=== PATIENT | female | born 1975 | race Caucasian/White ===

== ENCOUNTER 2016-08-13 11:30 | Inpatient (IN) | payer MEDICAID ==
[~2016-08-13] VITALS: Ht 157.5 cm; Wt 54.4 kg
[2016-08-13 11:35] VITALS: BP 157/94
--- NOTE | 2016-08-13 12:47 | NUR ---
Patient to bed 07.
--- NOTE | 2016-08-13 12:55 | NUR ---
PT C/O RLQ PAIN STARTED SINCE THIS MORNING; DENIES V/D; SKIN IS PINK/WARM/DRY; AAOX4 WITH EVEN AND STEADY GAIT; LUNGS CLEAR BL; HR EVEN AND REGULAR; PT DENIES ANY FEVER, CP, SOB, OR COUGH AT THIS TIME; PATIENT STATES PAIN OF 10/10 AT THIS TIME; VSS; PATIENT POSITIONED FOR COMFORT; HOB ELEVATED; BEDRAILS UP X2; BED DOWN. ER MD MADE AWARE OF PT STATUS.
--- NOTE | 2016-08-13 14:00 | NUR ---
DR RODRIGUES NOTIFIED OF PT'S C/O PAIN, AWAITING ORDERS, WILL CONTINUE TO MONITOR
[2016-08-13] MEDS ORDERED: HYDROmorphone 1 MG/ML AMP IVP ONE ×2 (14:35→16:45)
[2016-08-13] MEDS ORDERED: ONDANSETRON 4 MG/2 ML VIAL IVP ONE ×2 (14:35→16:45)
[2016-08-13] MEDS ORDERED: NACL 0.9% 1,000 ML IV ONE (14:35)
[2016-08-13 15:04] LABS: BASOPHILS # (AUTO) 0.1 K/uL (0.00-0.22); EOSINOPHILS # (AUTO) 0.2 K/uL (0-0.4)
[2016-08-13 15:10] LABS: BASOPHILS % (AUTO) 0.6 % (0.0-2.0); EOSINOPHILS % (AUTO) 1.3 % (0.0-4.0); HEMATOCRIT 45.8 % (36-48); HEMOGLOBIN 15.6 g/dL (12.0-16.0); LYMPHOCYTES % (AUTO) 8.6 % (20.5-51.1); MEAN CORPUSCULAR HEMOGLOBIN 31 pg (27-31); MEAN CORPUSCULAR HGB CONC 34 g/dL (33-37); MEAN CORPUSCULAR VOLUME 91 fL (80-94); MONOCYTES # (AUTO) 0.3 K/uL (0.8-1.0); MONOCYTES % (AUTO) 2.1 % (1.7-9.3); NEUTROPHILS # (AUTO) 10.3 K/uL (1.8-7.7); NEUTROPHILS % (AUTO) 87.4 % (42.2-75.2); PLATELET COUNT (AUTO) 232 K/uL (140-450); RED BLOOD CELL COUNT(AUTO) 5.06 MIL/uL (4.20-5.40); RED CELL DISTRIBUTION WIDTH 12.7 % (11.6-13.7); WHITE BLOOD COUNT (AUTO) 11.9 K/uL (4.8-10.8)
[2016-08-13 15:14] LABS: ANION GAP 14.4 (8-16); CARBON DIOXIDE 26.2 mmol/L (21-32); CREATININE 0.6 mg/dL (0.6-1.3); POTASSIUM 3.6 mmol/L (3.5-5.1)
[2016-08-13 15:21] LABS: ALBUMIN 4.4 g/dL (3.4-5.0); TOTAL BILIRUBIN 0.5 mg/dL (0.0-1.0); TOTAL PROTEIN, SERUM 8.5 g/dL (6.4-8.2)
[2016-08-13 15:45] LABS: APPEARANCE,URINE CLOUDY (CLEAR); BILIRUBIN,URINE NEGATIVE (NEGATIVE); BLOOD, URINE 1+ (NEGATIVE); COLOR,URINE YELLOW (YELLOW); LEUKOCYTE ESTERASE ,URINE NEGATIVE (NEGATIVE); NITRITE, URINE NEGATIVE (NEGATIVE); PROTEIN,URINE NEGATIVE (NEGATIVE); UGLUCOSE NEGATIVE (NEGATIVE); UROBILINOGEN,URINE 0.2 EU/dL (0.2 - 1)
[2016-08-13 15:47] LABS: RBC,URINE 0-5 /HPF (0-5); WBC,URINE 0-3 /HPF (0-5)
[2016-08-13 15:48] LABS: BACTERIA,URINE FEW /HPF (None Seen); SQUAMOUS EPITHELIAL CELL,UR 15-30 /LPF (0-3 (FEW)); URINE AMORPHOUS PHOSPHATES 4+ /HPF (None Seen)
--- NOTE | 2016-08-13 15:55 | NUR ---
PT RESTING COMFORTABLY WITH AND DAUGHTER AT BEDSIDE, "FEELS BETTER" PER PT, ON MONITOR, WILL CONTINUE TO MONITOR
--- NOTE | 2016-08-13 17:28 | NUR ---
Patient going to CT via wheelchair per tech.
--- NOTE | 2016-08-13 17:47 | NUR ---
Patient back from CT via wheelchair per tech.
--- NOTE | 2016-08-13 17:53 | NUR ---
PT PLACE BACK ON MONITOR, BEDRAILS UP X2 C/O NAUSEA, RLQ PAIN 08/21, MD NOTIFIED, WILL CONTINUE TO MONITOR
--- NOTE | 2016-08-13 19:14 | NUR ---
REPORT GIVEN TO JOAN ENGLE FOR CONTINUATION OF CARE
--- NOTE | 2016-08-13 19:50 | NUR ---
Pt report given to LINDSAY FRANCO . Transfer of care at this time.
--- NOTE | 2016-08-13 19:51 | NUR ---
RECEIVED REPORT FROM KADIE FOR TRANSFER OF CARE. Addendum: 08/13/16 at 2038 by LAVINIA JOAN ENGLE
[2016-08-13] MEDS ORDERED: cefOXitin 2,000 MG in DEXTROSE 5% 50 ML IV ONE (20:35)
--- NOTE | 2016-08-13 20:53 | NUR ---
Patient will be admitted to care of DR Jose BECKWITH. Admited to [facility]. Will go to room 109B. Belongings list completed. Report to JOAN NIEVES.
--- NOTE | 2016-08-13 21:00 | NUR ---
Admitted from E.. with chief complaint of RIGHT LOWER QUADRANT ABDOMINAL PAIN. A 40 y/o. Female, Appropriate. ALERT AWAKE ORIENTED X4. HONDURAN SPEAKING ONLY BUT FAMILY AT BEDSIDE WHO CAN UNDERSTAND AND SPEAK ESTONIAN WELL. INITIAL ASSESSMENT DONE. NO S/S OF RESPIRATORY DISTRESS OR SOB NOTED. NO C/O PAIN OR ANY DISCOMFORT AT THIS TIME. PLAN OF CARE REVIEWED TO PT AND FAMILY AT BEDSIDE AND VERBALIZED UNDERSTANDING AND NEED TO BE REINFORCED. oriented to call light, bed, phone,television, bathroom, smoking policy, visiting hours, procedures, ID bracelet on. Belongings list checked. CALL LIGHT WITHIN REACH. WILL CONTINUE TO MONITOR.
[2016-08-13] MEDS ORDERED: LORazepam 2 MG/ML VIAL IVP PRN (22:05)
[2016-08-13] MEDS ORDERED: ACETAMINOPHEN 325 MG TAB PO PRN (22:05)
--- NOTE | 2016-08-13 22:15 | NUR ---
DR. HINOJOSA CAME TO SEE PT AND NEW ORDERS WERE GIVEN (PLS SEE CPOE). NEW ORDERS NOTED AND CARRIED OUT. WILL CONTINUE TO MONITOR.
[2016-08-13] MEDS ORDERED: cefTRIAXone 1,000 MG VIAL ONE (22:22)
[2016-08-14] VITALS: BP 121/74
--- NOTE | 2016-08-14 00:30 | NUR ---
PT IS SLEEPING RIGHT NOW BUT EASILY AROUSABLE. NO S/S OF ANY DISCOMFORT AT THIS TIME. ALL NEEDS ARE ATTENDED. CALL LIGHT WITHIN REACH. WILL CONTINUE TO MONITOR.
--- NOTE | 2016-08-14 05:20 | NUR ---
AM CARE RENDERED. BED LINEN CHANGED. INSTRUCTED PATIENT TO REPOSITION. KEPT CLEAN AND DRY. CALL LIGHT WITHIN REACH. WILL CONTINUE TO MONITOR.
[2016-08-14 06:59] LABS: BASOPHILS # (AUTO) 0.1 K/uL (0.00-0.22); BASOPHILS % (AUTO) 0.8 % (0.0-2.0); EOSINOPHILS # (AUTO) 0.1 K/uL (0-0.4); EOSINOPHILS % (AUTO) 0.8 % (0.0-4.0); LYMPHOCYTES # (AUTO) 2.9 K/uL (2.5-16.5); LYMPHOCYTES % (AUTO) 23.8 % (20.5-51.1); MEAN CORPUSCULAR HEMOGLOBIN 31 pg (27-31); MEAN CORPUSCULAR HGB CONC 34 g/dL (33-37); MEAN CORPUSCULAR VOLUME 91 fL (80-94); MONOCYTES # (AUTO) 0.8 K/uL (0.8-1.0); MONOCYTES % (AUTO) 6.5 % (1.7-9.3); NEUTROPHILS # (AUTO) 8.4 K/uL (1.8-7.7); NEUTROPHILS % (AUTO) 68.1 % (42.2-75.2); PLATELET COUNT (AUTO) 208 K/uL (140-450); RED BLOOD CELL COUNT(AUTO) 4.17 MIL/uL (4.20-5.40); RED CELL DISTRIBUTION WIDTH 12.8 % (11.6-13.7); WHITE BLOOD COUNT (AUTO) 12.3 K/uL (4.8-10.8)
[2016-08-14 07:16] LABS: ANION GAP 13.1 (8-16); CALCIUM 8.2 mg/dL (8.5-10.1); CARBON DIOXIDE 26.2 mmol/L (21-32); CREATININE 0.6 mg/dL (0.6-1.3); POTASSIUM 3.3 mmol/L (3.5-5.1)
[2016-08-14 08:00] VITALS: BP 118/72
--- NOTE | 2016-08-14 08:00 | NUR ---
RECEIVED ON BED AA0X4. NO SOB NOTED. NO C/O PAIN AT THIS TIME. IV TO RT AC PATENT AND INTACT. CHEST CLEAR. ABDOMEN SOFT, BOWEL SOUNDS PRESENT. NO EDEMA NOTED. INSTRUCTED PT TO CALL FOR ASSISTANCE, CALL LIGHT WITHIN REACH, PT VERBALIZED UNDERSTANDING.
--- NOTE | 2016-08-14 08:40 | NUR ---
DR. Osman ARMAS HERE TO SEE PT.
--- NOTE | 2016-08-14 09:38 | NUR ---
PATIENT HAS BEEN SCREENED AND CATEGORIZED LOW NUTRITION RISK. PATIENT WILL BE SEEN WITHIN 7 DAYS OF ADMISSION. 08/20/16 ANNE COATES MBA, RD
[2016-08-14] MEDS ORDERED: POTASSIUM CHLORIDE 10 MEQ TABER PO SCH (11:35)
[2016-08-14] MEDS: metroNIDAZOLE 500 MG/NS PREMIX 100 ML IV SCH ×2 (13:02→21:14)
--- NOTE | 2016-08-14 14:00 | NUR ---
PT SEEN BY NILE MCCAULEY WITH NEW ORDERS.
--- NOTE | 2016-08-14 14:19 | NUR ---
CALVIN DE LA CRUZ CALLED BACK FOR DR. ROMAN AND NOTIFIED WITH THE CONSULT. NO NEW ORDERS.
[2016-08-14 16:00] VITALS: BP 118/80
--- NOTE | 2016-08-14 18:53 | NUR ---
PT RESTING. NO SOB NOTED. NO COMPLAINTS MADE. WILL ENDORSE TO NEXT SHIFT FOR CONTINUITY OF CARE.
--- NOTE | 2016-08-14 19:10 | NUR ---
RECEIVED PT AWAKE, AAOX4, DENIES ANY PAIN, IV LINE INTACT FLUSHES WELL, PLAN OF CARE DISCUSSED, CALL LIGHT WITHIN REACH.
[2016-08-14] MEDS: HYDROcodone/APAP 5/325 MG 1 TAB TAB PO PRN (21:20)
--- NOTE | 2016-08-14 21:20 | NUR ---
MEDICATED PRN FOR RT ABDOMINAL PAIN WITH NORCO, IV ANTIBIOTIC ADMINISTERED, MONITORED CLOSELY.
[2016-08-15] VITALS: BP 121/70
--- NOTE | 2016-08-15 | NUR ---
PT SLEEPING, EASILY AROUSABLE, VITAL SIGNS STABLE, DENIES ANY PAIN, CONTINUE TO MONITOR CLOSELY.
[2016-08-15] MEDS: metroNIDAZOLE 500 MG/NS PREMIX 100 ML IV SCH ×3 (04:18→20:45)
--- NOTE | 2016-08-15 04:25 | NUR ---
PT SLEEPING, EASILY AROUSABLE, DENIES ANY PAIN, DUE FLAGYL IVPB ADMINISTERED, MONITORED CLOSELY.
--- NOTE | 2016-08-15 06:10 | NUR ---
IV HEPLOCK,AMBULATED TO BR WITH STEADY GAIT, DENIES ANY PAIN, MONITORED CLOSELY.
[2016-08-15 07:23] LABS: BASOPHILS # (AUTO) 0.2 K/uL (0.00-0.22); BASOPHILS % (AUTO) 1.2 % (0.0-2.0); EOSINOPHILS # (AUTO) 0.3 K/uL (0-0.4); EOSINOPHILS % (AUTO) 1.8 % (0.0-4.0); HEMATOCRIT 40.7 % (36-48); HEMOGLOBIN 13.7 g/dL (12.0-16.0); LYMPHOCYTES # (AUTO) 1.9 K/uL (2.5-16.5); LYMPHOCYTES % (AUTO) 13.2 % (20.5-51.1); MEAN CORPUSCULAR HEMOGLOBIN 31 pg (27-31); MEAN CORPUSCULAR HGB CONC 34 g/dL (33-37); MEAN CORPUSCULAR VOLUME 91 fL (80-94); MONOCYTES # (AUTO) 0.6 K/uL (0.8-1.0); MONOCYTES % (AUTO) 4.2 % (1.7-9.3); NEUTROPHILS # (AUTO) 11.1 K/uL (1.8-7.7); NEUTROPHILS % (AUTO) 79.6 % (42.2-75.2); PLATELET COUNT (AUTO) 209 K/uL (140-450); RED BLOOD CELL COUNT(AUTO) 4.46 MIL/uL (4.20-5.40); WHITE BLOOD COUNT (AUTO) 14.1 K/uL (4.8-10.8)
--- NOTE | 2016-08-15 07:25 | NUR ---
PT AWAKE, NO SIGNS OF DISTRESS, REPORT GIVEN TO JOAN BRAND FOR CONTINUITY OF CARE.
--- NOTE | 2016-08-15 07:30 | NUR ---
RECEIVED REPORT FROM JOAN STONE. PT IS A/OX4, AMBULATORY, SKIN IS INTACT, RT AC IV, PATENT, INTACT, FLUSHING WELL, NO S/S OF RESPIRATORY DISTRESS OR DISCOMFORT NOTED, SAFETY/FALL PRECAUTIONS ARE IN PLACE, DISCUSSED PLAN OF CARE WITH PT, PT VERBALIZED UNDERSTANDING, CALL LIGHT WITHIN REACH, WILL CONTINUE TO MONITOR.
[2016-08-15 07:33] LABS: ANION GAP 12.7 (8-16); CALCIUM 8.4 mg/dL (8.5-10.1); CARBON DIOXIDE 26.9 mmol/L (21-32); CREATININE 0.6 mg/dL (0.6-1.3); POTASSIUM 3.6 mmol/L (3.5-5.1)
[2016-08-15 08:00] VITALS: BP 123/82
--- NOTE | 2016-08-15 09:30 | NUR ---
PT IS SITTING UP IN BED WATCHING TV, CALL LIGHT IS WITHIN REACH.
--- NOTE | 2016-08-15 11:40 | NUR ---
PT IS RESTING IN BED AT THIS TIME, FAMILY IS AT BEDSIDE.
--- NOTE | 2016-08-15 12:15 | NUR ---
DUE MEDICATIONS GIVEN, PT TOLERATED WELL, FAMILY IS AT BED, CALL LIGHT WITHIN REACH WILL CONTINUE TO MONITOR.
--- NOTE | 2016-08-15 12:37 | NUR ---
SPOKE WITH DR. TANG DOWD REGARDING PT'S TRANSFER TO HIGHER LEVEL OF CARE. MD STATED IT IS NOT URGENT AND PRINTING PRESSMAN AND MILLINERY TEACHER CAN ARRANGE IT TOMORROW.
--- NOTE | 2016-08-15 13:17 | NUR ---
PT SITTING IN BED EATING LUNCH, FAMILY IS AT BEDSIDE, CALL LIGHT WITHIN REACH.
--- NOTE | 2016-08-15 15:20 | NUR ---
PT RESTING IN BED, FAMILY IS AT BEDSIDE, NO S/S OF RESPIRATORY DISTRESS OR DISCOMFORT NOTED, CALL LIGHT WITHIN REACH, WILL CONTINUE TO MONITOR.
[2016-08-15 16:00] VITALS: BP 116/76
--- NOTE | 2016-08-15 17:30 | NUR ---
PT IS SITTING IN BED, WATCHING TV, FAMILY IS AT BEDSIDE, CALL LIGHT WITHIN REACH.
--- NOTE | 2016-08-15 19:15 | NUR ---
ENDORSED PT TO JOAN BLUM. FOR CONTINUITY OF CARE, PT STABLE AT THIS TIME. FAMILY AT BEDSIDE.
--- NOTE | 2016-08-15 19:22 | NUR ---
RECEIVED REPORTS FROM DAY RN. PATIENT RESTING IN BED, FAMILY MEMBERS AT BEDSIDE. AAOX4, NO S/S OF ACUTE DISTRESS NOTED, PT DENIES PAIN AT TIME. RESPIRATION EVEN AND UNLABORED. IV INTACT AND PATENT. CALL LIGHT WITHIN REACH, SAFETY MEASURE ENSURED, WILL CONTINUE TO MONITOR.
[2016-08-15] MEDS: HYDROcodone/APAP 5/325 MG 1 TAB TAB PO PRN (20:46)
--- NOTE | 2016-08-15 20:50 | NUR ---
PT STATED ABD RLQ PAIN 6/10, MEDICATED NORCO ORDERED. NO S/S OF ACUTE DISTRESS NOTED, CALL LIGHT WITHIN REACH, SAFETY MEASURE ENSURED, WILL CONTINUE TO MONITOR
--- NOTE | 2016-08-15 21:31 | NUR ---
PT RESTING IN BED, PAIN REASSESSMENT DONE, PT STATED "BETTER". NO S/S OF ACUTE DISTRESS NOTED, CALL LIGHT WITHIN REACH, SAFETY MEASURE ENSURED, WILL CONTINUE TO MONITOR
[2016-08-16] VITALS: BP 107/62
--- NOTE | 2016-08-16 | NUR ---
PT SLEEPING IN BED. EASY TO AROUSE. VITAL SIGNS TAKEN, WITHIN NORMAL RANGE. PT DENIES PAIN AT THIS TIME. NO S/S OF ACUTE DISTRESS OR DISCOMFORT NOTED, SAFETY MEASURE ENSURED, CALL LIGHT WITHIN REACH, WILL CONTINUE TO MONITOR.
--- NOTE | 2016-08-16 01:48 | NUR ---
PT SLEEPING IN BED, NO S/S OF ACUTE DISTRESS NOTED, RESPIRATION EVEN AND UNLABORED. CALL LIGHT WITHIN REACH, SAFETY MEASURE ENSURED, WILL CONTINUE TO MONITOR.
[2016-08-16] MEDS: ONDANSETRON 4 MG/2 ML VIAL IVP PRN ×3 (01:56→19:00)
--- NOTE | 2016-08-16 02:03 | NUR ---
PT STATED FEELING NAUSEOUS. ZOFRAN GIVEN ORDERED, WILL CONTINUE TO MONITOR
[2016-08-16] MEDS: metroNIDAZOLE 500 MG/NS PREMIX 100 ML IV SCH ×3 (04:03→21:06)
--- NOTE | 2016-08-16 04:44 | NUR ---
PT ASLEEP. NO S/S OF ACUTE DISTRESS NOTED, RESPIRATION EVEN AND UNLABORED, SAFETY MEASURE ENSURED, CALL LIGHT WITHIN REACH, WILL CONTINUE TO MONITOR
[2016-08-16 06:15] LABS: BASOPHILS # (AUTO) 0.1 K/uL (0.00-0.22); BASOPHILS % (AUTO) 0.8 % (0.0-2.0); EOSINOPHILS # (AUTO) 0.2 K/uL (0-0.4); EOSINOPHILS % (AUTO) 1.5 % (0.0-4.0); HEMATOCRIT 37.8 % (36-48); HEMOGLOBIN 13.1 g/dL (12.0-16.0); LYMPHOCYTES # (AUTO) 1.6 K/uL (2.5-16.5); LYMPHOCYTES % (AUTO) 11.7 % (20.5-51.1); MEAN CORPUSCULAR HEMOGLOBIN 32 pg (27-31); MEAN CORPUSCULAR HGB CONC 35 g/dL (33-37); MEAN CORPUSCULAR VOLUME 91 fL (80-94); MONOCYTES # (AUTO) 0.8 K/uL (0.8-1.0); MONOCYTES % (AUTO) 5.6 % (1.7-9.3); NEUTROPHILS # (AUTO) 10.8 K/uL (1.8-7.7); NEUTROPHILS % (AUTO) 80.4 % (42.2-75.2); PLATELET COUNT (AUTO) 187 K/uL (140-450); RED BLOOD CELL COUNT(AUTO) 4.13 MIL/uL (4.20-5.40); RED CELL DISTRIBUTION WIDTH 12.9 % (11.6-13.7); WHITE BLOOD COUNT (AUTO) 13.5 K/uL (4.8-10.8)
[2016-08-16 06:31] LABS: ANION GAP 14.6 (8-16); CALCIUM 8.3 mg/dL (8.5-10.1); CARBON DIOXIDE 24.7 mmol/L (21-32); CREATININE 0.5 mg/dL (0.6-1.3); POTASSIUM 3.3 mmol/L (3.5-5.1)
--- NOTE | 2016-08-16 07:20 | NUR ---
RECEIVED REPORT OF PT FROM SENIOR NETWORK SECURITY ENGINEER NURSE AT BEDSIDE. PT IS ALERT AWAKE AND ORIENTED. PT STATED SHE HAS PAIN BUT TOLERABLE. PT HAS IV R AC 20 TKO. INTRODUCED MYSELF AND UPDATED THE BOARD. EXPLAINED TO PT PLAN OF CARE. PT VERBALIZED UNDERSTANDING. CALL LIGHT WITHIN REACH. WILL CONTINUE TO MONITOR.
[2016-08-16 08:00] VITALS: BP 101/70
--- NOTE | 2016-08-16 09:27 | NUR ---
CALLED [facility] AND SPOKE WITH FUNMI IN BED CONTROL. NO BEDS.
--- NOTE | 2016-08-16 09:30 | NUR ---
SPOKE TO DR. MELARA ON THE PHONE REGARDING PT'S NEED FOR CONSULTATION. WILL COME AROUND NOON TIME.
[2016-08-16] MEDS: HYDROcodone/APAP 5/325 MG 1 TAB TAB PO PRN ×2 (10:28→16:42)
--- NOTE | 2016-08-16 11:00 | NUR ---
44 Addendum: 08/16/16 at 1706 by Matt Alcantara RN MISTAKE
--- NOTE | 2016-08-16 11:28 | NUR ---
PT IS RESTING IN BED. STATED THE PAIN MED HELPED WITH PAIN. CALL LIGHT WITHIN REACH. WILL CONTINUE TO MONITOR.
--- NOTE | 2016-08-16 13:05 | NUR ---
DR. ROMAN WAS AT BEDSIDE EXAMINED AND EXPLAINED TO PT PLAN OF CARE. PT IS IN STABLE CONDITION.
--- NOTE | 2016-08-16 14:03 | NUR ---
CALLED [facility] AND SPOKE WITH JOSE, STARLA FARRAR AND SHE HAS 15 WAITING IN ER. I SPOKE WITH DR. ROMAN AND HE SAID TO TRY [facility] AND HE SAID IF NEEDED, HE WOULD BE THE ADMITTING PHYSICIAN. I CALLED [facility] AND SPOKE WITH ADMITTING, MURPHY. HER SAID HE WOULD CALL ME BACK.
--- NOTE | 2016-08-16 14:30 | NUR ---
INSERTED A NEW IV ON PT'S LEFT HAND 22 G. PT TOLERATED WELL.
--- NOTE | 2016-08-16 14:56 | NUR ---
SPOKE WITH ELISABET FROM ADMITTING AT [facility]. SHE SAID AT PRESENT, THEY HAVE NO BEDS. SHE ASKED ME TO FAX THE FACE SHEET TO HER. FAXED THE FACE SHEET AND ORDER TO HER AT [phone].
--- NOTE | 2016-08-16 15:51 | NUR ---
FAXED H&P, FACE SHEET AND CT ABD TO [facility] [phone].
[2016-08-16 16:00] VITALS: BP 116/80
--- NOTE | 2016-08-16 16:44 | NUR ---
PT VISITING WITH FAMILY. NO SIGNS OF DISTRESS. NO COMPLAINTS AT THIS TIME. WILL CONTINUE TO MONITOR PT.
[2016-08-16] MEDS: MORPHINE SULFATE 2 MG/ML SYR IVP PRN ×2 (17:51→21:54)
--- NOTE | 2016-08-16 18:37 | NUR ---
REPORTED TO DR. BECKWITH PT'S LOW K LEVEL. WILL PUT IN ORDER.
[2016-08-16] MEDS ORDERED: POTASSIUM CHLORIDE 10 MEQ TABER PO SCH (19:00)
--- NOTE | 2016-08-16 19:00 | NUR ---
PT VOMITED AFTER TAKING K-DUR. CHECKED PT'S VOMIT FOR PILLS, NON FOUND. ADMINISTERED ZOFRAN.
--- NOTE | 2016-08-16 19:18 | NUR ---
ENDORSED PT TO CONTINUOUS IMPROVEMENT INTERN NURSE AT BEDSIDE. PT IN STABLE CONDITION.
--- NOTE | 2016-08-16 19:19 | NUR ---
RECD. RESTING IN BED, AWAKE, A/OX4. RESPIRATION EVEN AND UNLABORED. IV OF NS AT TKO INFUSING, LEFT HAND G22. PLAN OF CARE FOR THE SHIFT DISCUSSED. VERBALIZED UNDERSTANDING. PAIN IN THE ABDOMEN 04/23, WILL MEDICATE ORDERED. FAMILY AT THE BEDSIDE. AWARE OF PLANNED TRANSFER TO [facility] WHEN BED IS AVAILABLE.
--- NOTE | 2016-08-16 20:00 | NUR ---
Patient's Plan of Care was discussed and reviewed with TUBING MACHINE OPERATOR: RYANNE.
--- NOTE | 2016-08-16 21:30 | NUR ---
WATCHING TV. NO COMPLAINT OF PAIN 0/10.
[2016-08-17] VITALS: BP 127/63
--- NOTE | 2016-08-17 | NUR ---
SLEEPING COMFORTABLY IN BED.
[2016-08-17 04:00] VITALS: BP 103/69
[2016-08-17] MEDS: MORPHINE SULFATE 2 MG/ML SYR IVP PRN ×2 (04:01→08:57)
--- NOTE | 2016-08-17 04:01 | NUR ---
AWAKE, CRYING IN PAIN. MEDICATED WITH MORPHINE BY JOAN HERNADEZ.
--- NOTE | 2016-08-17 05:00 | NUR ---
SLEEPING COMFORTABLY IN BED.
[2016-08-17] MEDS: metroNIDAZOLE 500 MG/NS PREMIX 100 ML IV SCH ×3 (05:56→21:42)
[2016-08-17 06:32] LABS: BASOPHILS # (AUTO) 0.1 K/uL (0.00-0.22); BASOPHILS % (AUTO) 0.8 % (0.0-2.0); EOSINOPHILS # (AUTO) 0.2 K/uL (0-0.4); EOSINOPHILS % (AUTO) 1.8 % (0.0-4.0); HEMATOCRIT 36.3 % (36-48); HEMOGLOBIN 12.3 g/dL (12.0-16.0); LYMPHOCYTES # (AUTO) 1.3 K/uL (2.5-16.5); LYMPHOCYTES % (AUTO) 10.4 % (20.5-51.1); MEAN CORPUSCULAR HEMOGLOBIN 31 pg (27-31); MEAN CORPUSCULAR HGB CONC 34 g/dL (33-37); MEAN CORPUSCULAR VOLUME 92 fL (80-94); MONOCYTES # (AUTO) 0.7 K/uL (0.8-1.0); MONOCYTES % (AUTO) 5.9 % (1.7-9.3); NEUTROPHILS # (AUTO) 9.9 K/uL (1.8-7.7); NEUTROPHILS % (AUTO) 81.1 % (42.2-75.2); PLATELET COUNT (AUTO) 216 K/uL (140-450); RED BLOOD CELL COUNT(AUTO) 3.96 MIL/uL (4.20-5.40); RED CELL DISTRIBUTION WIDTH 12.7 % (11.6-13.7)
[2016-08-17 06:48] LABS: ANION GAP 13.3 (8-16); CALCIUM 8.1 mg/dL (8.5-10.1); CARBON DIOXIDE 25.9 mmol/L (21-32); CREATININE 0.5 mg/dL (0.6-1.3); POTASSIUM 3.2 mmol/L (3.5-5.1)
--- NOTE | 2016-08-17 06:48 | NUR ---
CONDITION REMAIN STABLE. WILL ENDORSE TO AM NURSE FOR CONTINUITY OF CARE.
[2016-08-17 06:56] LABS: WHITE BLOOD COUNT (AUTO) 12.3 K/uL (4.8-10.8)
--- NOTE | 2016-08-17 07:20 | NUR ---
ENDORSED TO JOAN ORR FOR CONTINUITY OF CARE.
--- NOTE | 2016-08-17 07:21 | NUR ---
RECEIVED REPORT FROM ICING MIXER NURSE AT BEDSIDE. PT IS ALERT AWAKE AND ORIENTED. INTRODUCED MYSELF AND UPDATED THE BOARD. PT STATED SHE HAS PAIN IN RLQ. WILL CHECK FOR WHEN NEXT PAIN MED IS DUE. PT HAS IV ON L HAND 22 G TKO. VS WNL. PT STATED SHE ONLY HAS APPETITE FOR FRUITS. CALL LIGHT WITHIN REACH. WILL CONTINUE TO MONITOR.
--- NOTE | 2016-08-17 08:36 | NUR ---
EXPLAINED TO PT THAT CM IS WORKING TO FIND A ONC BED FOR HER. PT VERBALIZED UNDERSTANDING.
--- NOTE | 2016-08-17 09:33 | NUR ---
CALLED [facility] AND SPOKE WITH CHANTEL, SHE SAID NO BEDS. CALLED [facility] AND SPOKE WITH MURPHY, HE SAID AT PRESENT NO BEDS. CALLED [facility] AND SPOKE WITH MOHIT. I FAXED ORDER AND FACE SHEET TO HER. FAXED INQUIRY TO [facility].
--- NOTE | 2016-08-17 09:50 | NUR ---
PT'S IV WAS LEAKING SOME BLOOD. CLEANED AND CHANGED SHEETS. FLUSHED PT'S IV, STILL INTACT. WILL MONITOR.
--- NOTE | 2016-08-17 10:40 | NUR ---
MOVED PT FROM 109B TO 112A. MOVED ALL PT'S PERSONAL BELONGINGS TO NEW ROOM. CALL LIGHT WITHIN REACH. PT TOLERATED WELL. WILL CONTINUE TO MONITOR.
--- NOTE | 2016-08-17 11:10 | NUR ---
RECEIVED A CALL FROM IRMA FROM [facility]. THEY ARE UNABLE TO ACCEPT THIS PATIENT.
[2016-08-17] MEDS ORDERED: KCL 20 MEQ/WATER INJ PREMIX 100 ML IV SCH (13:21)
--- NOTE | 2016-08-17 13:27 | NUR ---
PT IS RESTING AT END OF BED WITH FAMILY AT BEDSIDE. NO COMPLAINTS AT THIS TIME. WILL CONTINUE TO MONITOR.
--- NOTE | 2016-08-17 13:55 | NUR ---
CALLED PAT AT [facility] TO SEE IF THEY COULD TAKE THIS PATIENT. HE SAID IF PATIENT HAS RESTRICTED, EMERGENCY, MEDICAL, SHE WOULD HAVE TO APPLY FOR PRUCOL FOR MEDICAL. HE WANTED TO KNOW IF THE PATIENT WILL TAKE BLOOD PRODUCTS AND WOULD BE WILLING TO BE TRANSFERED TO [facility] BEFORE HE COULD SEE IF SHE WOULD BE ACCEPTED. I FAXED FACE SHEET, ORDER AND OTHER INFORMATION TO HIM AT [phone]. I SPOKE WITH THE PATIENT WITH ELISABET, WINDOWS AND DOORS INSTALLER, INTERPRETOR. PATIENT HAS NOT APPLIED FOR PRUCOL, BUT WAS GOING TO TRY AND GET IEHP SINCE HER CHILDREN HAS IT. SHE IS WILLING TO BE TRANSFERED TO [facility] AND WILLING TO HAVE BLOOD PRODUCTS IF NEEDED.
--- NOTE | 2016-08-17 15:00 | NUR ---
FAMILY AT BEDSIDE. PT IS RESTING IN BED. STATED SHE HAS PAIN BUT TOLERABLE. CALL LIGHT WITHIN REACH. WILL CONTINUE TO MONITOR.
[2016-08-17 16:00] VITALS: BP 114/72
--- NOTE | 2016-08-17 17:57 | NUR ---
PT STATED SHE STILL FEELS A LITTLE NAUSEOUS WHEN EATING. DOES NOT NEED MED AT THIS POINT. WILL CONTINUE TO MONITOR.
--- NOTE | 2016-08-17 19:19 | NUR ---
ENDORSED PT TO BILLING SPEC NURSE AT BEDSIDE. PT IN STABLE CONDITION.
--- NOTE | 2016-08-17 19:20 | NUR ---
RECD. SITTING ON BED, AWAKE, A/OX4. CONVERSING WITH VISITORS. IV SALINE LOCK AT THE LEFT HAND G 22, PATENT AND INTACT. PLAN OF CARE FOR THE SHIFT DISCUSSED. VERBALIZED UNDERSTANDING. PAIN IN THE ABDOMEN 03/23, WILL CALL NURSE WHEN PAIN INCREASES. TOLERATING WELL REGULAR DIET.
--- NOTE | 2016-08-17 20:00 | NUR ---
DR. BAILEY CAME REGARDING OB REFERRAL, STATED PHONE NUMBER OF DR. BECKWITH CANNOT BE ACCESS. PAGED FOR DR. BECKWITH.
--- NOTE | 2016-08-17 20:00 | NUR ---
Patient's Plan of Care was discussed and reviewed with REVIVAL CLERK: NACHO PEARL
--- NOTE | 2016-08-17 20:45 | NUR ---
DR. BECKWITH CALLED, PATIENT SHOULD BE TRANSFERRED TO [facility]. CHARGE NURSE NEMESIO WILL ENDORSE TOMORROW FOR FOLLOW UP.
--- NOTE | 2016-08-17 22:00 | NUR ---
SLEEPING COMFORTABLY IN BED.
--- NOTE | 2016-08-17 23:15 | NUR ---
DR. CLYDE BECKWITH CALLED, PATIENT HAVE AVAILABLE BED 495 A. CHARGE NURSE NEMESIO MADE NURSE COREMAKER SUPERVISOR AWARE.
--- NOTE | 2016-08-17 23:35 | NUR ---
PATIENT MADE AWARE OF POSSIBLE TRANSFER TO [facility]. FAX TRANSPORT REQUEST TO [facility].
[2016-08-18] VITALS: BP 104/72
--- NOTE | 2016-08-18 00:20 | NUR ---
REPORT GIVEN TO JOAN CHRISTIE OF [facility], PATIENT IS GOING TO ROOM 495A.
--- NOTE | 2016-08-18 01:00 | NUR ---
REPORT GIVEN TO [facility] PERSONNEL.
--- NOTE | 2016-08-18 01:15 | NUR ---
TAKEN TO HOSPITAL LOBBY PARKING IN STABLE CONDITION FOR TRANSFER TO [facility] ACCOMPANIED BY AND AMBULANCE PERSONNEL.
== END 2016-08-18 01:15 | disposition short-term general hospital (02) | DRG 720 ==
LOC: MED 11:30 → MTU 20:44
PROVIDERS: ADMIT Preventive Medicine Preventive Medicine/Occupational Environmental Medicine; ATTEND Preventive Medicine Preventive Medicine/Occupational Environmental Medicine
DX: A41.9 Sepsis, unspecified organism (principal); E83.52 Hypercalcemia; N70.93 Salpingitis and oophoritis, unspecified; R19.00 Intra-abdominal and pelvic swelling, mass and lump, unspecified site; E87.6 Hypokalemia; D72.829 Elevated white blood cell count, unspecified
CPT/HCPCS: 36415; 76856; 80048; 80053; 81001; 81025; 82378; 82670; 83625; 85025; 85651; 86140; 86304; 87040; 87081; 87086; 96361; 96374; 96375; 96376; 99285; J0694; J0696; J1170; J2270; J2405; J3480; J3490; J7030; J7060; Q0092; Q9967